=== PATIENT | female | born 1975 | race Caucasian/White ===

== ENCOUNTER → 2020-07-29 | Outpatient (CLI) | payer OTHER ==
[~2020-07-29] MED LIST: IBUPROFEN200 MG PO; TRAMADOL 50 MG50 MG PO; TYLENOL325 M1 PO
== END ==
LOC: M.PC 07-24 09:30
PROVIDERS: ATTEND Physical Medicine & Rehabilitation
DX: M51.16 Intervertebral disc disorders with radiculopathy, lumbar region (principal); Z68.41 Body mass index [BMI] 40.0-44.9, adult

== ENCOUNTER → 2020-08-12 | Outpatient (CLI) | payer OTHER | LOC: M.PC 08:30 | PROVIDERS: ATTEND Physical Medicine & Rehabilitation | DX: M51.16 Intervertebral disc disorders with radiculopathy, lumbar region (principal); M47.26 Other spondylosis with radiculopathy, lumbar region; M48.07 Spinal stenosis, lumbosacral region; M79.605 Pain in left leg ==

== ENCOUNTER → 2020-08-21 | Outpatient (CLI) | payer OTHER | LOC: M.CT 13:15 | PROVIDERS: ATTEND Family Medicine | DX: Z13.6 Encounter for screening for cardiovascular disorders (principal) ==